=== PATIENT | male | born 1980 | race Caucasian/White ===

== ENCOUNTER 2024-02-09 13:29 | Emergency (ER) | payer MEDICAID ==
[~2024-02-09] VITALS: Ht 175.3 cm; Wt 102.1 kg
[2024-02-09 13:52] VITALS: BP_SYST 116; PULSE 72; RESP 18; TEMP 98; O2SAT 98
[2024-02-09] MEDS ORDERED: ACET325T PO (16:45)
[2024-02-09] MEDS ORDERED: ZIT250 PO (16:45)
[2024-02-09] MEDS ORDERED: GUAI5SYR PO (16:45)
[2024-02-09] MEDS: IBUPROFEN 600 MG TABLET PO ONE (16:47)
[2024-02-09] MEDS: SULFAMETHOXAZOLE/TRIMETHOPR DS 1 TABLET PO ONE (16:48)
[2024-02-09] MEDS ORDERED: IBUPROFEN 600 MG TABLET ONE (16:49)
[2024-02-09] MEDS ORDERED: SULF1TAB48 PO (16:53)
[2024-02-09] MEDS ORDERED: IBUP-1969 PO (16:53)
[2024-02-09 16:58] VITALS: BP_SYST 112; PULSE 68; RESP 17; TEMP 98; O2SAT 100
== END 2024-02-09 16:58 | disposition home or self-care (01) ==
LOC: SED 13:29
DX: N50.89 Other specified disorders of the male genital organs (principal)
CPT/HCPCS: 76870; 99284